=== PATIENT | male | born 1980 | race Caucasian/White ===

== ENCOUNTER → 2024-08-23 | Day surgery (SDC) | payer OTHER ==
[~2024-08-23] MED LIST: LACTATED RINGER'S 1,000 ML ONE; LIDOCAINE HCL 2% LOCAL INJ 5 ML SDV VIAL INJ ONE; MIDAZOLAM HCL 2 MG/2 ML VIAL ONE; PROPOFOL IV EMULSION 10 MG/ML 20 ML VIAL ONE
[2024-08-23 13:08] VITALS: TEMP 97
[2024-08-23 13:50] VITALS: BP 117/82; PULSE 79; RESP 15; O2SAT 98
== END | disposition home or self-care (01) ==
LOC: OR 10:13
PROVIDERS: ATTEND Internal Medicine Gastroenterology
DX: K29.50 Unspecified chronic gastritis without bleeding (principal); K44.9 Diaphragmatic hernia without obstruction or gangrene; B96.81 Helicobacter pylori [H. pylori] as the cause of diseases classified elsewhere; K21.9 Gastro-esophageal reflux disease without esophagitis; K59.00 Constipation, unspecified; K64.8 Other hemorrhoids; K29.80 Duodenitis without bleeding; Z87.738 Personal history of other specified (corrected) congenital malformations of digestive system; Z87.891 Personal history of nicotine dependence
CPT/HCPCS: 43239; 45378; 93005; J2003; J2250